=== PATIENT | male | born 1995 | race Hispanic/Latino ===

== ENCOUNTER 2016-10-23 08:25 | Emergency (ER) | payer OTHER ==
[~2016-10-23] VITALS: Ht 175.3 cm; Wt 68.1 kg
[2016-10-23 09:07] LABS: HEMATOCRIT 41.5 % (38.0-50.0); MCH 29.6 PG (29.0-34.0); MCHC 34.7 G/DL (30.0-36.0); MCV 85.2 FL (86-99); MEAN PLAT.VOLUME 10.5 uM^3 (9.0-12.4); PLATELET COUNT 171 K/uL (156-360); RBC DIS.WIDTH-CV 11.9 % (11.8-14.6); RBC DIS.WIDTH-SD 36.8 % (39-53); RED BLOOD COUNT 4.87 M/uL (4.00-5.50); WHITE BLOOD COUNT 6.1 K/uL (4.1-10.2)
[2016-10-23 09:18] LABS: CHLORIDE 106 mEq/L (99-109); POTASSIUM 4.2 mEq/L (3.7-5.4); SODIUM 141 mEq/L (136-147)
[2016-10-23 09:19] LABS: GLUCOSE 78 mg/dL (70-99)
[2016-10-23 09:21] LABS: ANION GAP 7 MEQ/L (2-14)
[2016-10-23 09:24] LABS: UREA NITROGEN (BUN) 18 mg/dL (9-23)
[2016-10-23 09:28] LABS: GFR ESTIMATE (CALCULATED) > 59 mL/min/
[2016-10-23 10:32] LABS: ADD MIUA? NO; BILIRUBIN NEGATIVE; BLOOD NEGATIVE; COLOR STRAW ((YELLOW)); GLUCOSE (STRIP) NEGATIVE; KETONES NEGATIVE; LEUKOCYTES NEGATIVE; NITRITE NEGATIVE; PROTEIN (STRIP) NEGATIVE; SPECIFIC GRAVITY 1.009 (1.000-1.030); UCUL ADDED? NO; UROBILINOGEN 0.2 MG/DL (0.2-1.0)
[2016-10-23 11:47] VITALS: BP 119/72
== END 2016-10-23 11:49 | disposition home or self-care (01) ==
LOC: EME 08:25
PROVIDERS: Emergency Medicine
DX: R51 Headache (principal); M54.5 Low back pain; V43.52XA Car driver injured in collision with other type car in traffic accident, initial encounter; W22.10XA Striking against or struck by unspecified automobile airbag, initial encounter; Y92.410 Unspecified street and highway as the place of occurrence of the external cause
CPT/HCPCS: 80048; 81003; 85027; 93005; 99281; 99284